=== PATIENT | female | born 1955 | race Caucasian/White ===

== ENCOUNTER → 2017-03-27 | Outpatient (CLI) | payer OTHER ==
[~2017-03-27] MED LIST: ASPI-630 PO; CHOL100099 PO; KRIL1CAP10 PO; LISI10TA2 PO; MULT1TAB52 PO; OMEP20CA5 PO; PRAV80TA2 PO
--- NOTE | 2017-03-27 10:47 | KCIC ---
Renal ultrasound dated 03/27/2017. Comparison made to 12/13/2015. Clinical indication: Hematuria. FINDINGS: Right kidney measures 10.7 cm in length. Left kidney measures 10.7 cm in length. No hydronephrosis. There is a complex cystic focus at the midpole right kidney that measures up to 8 mm maximum dimension, not significantly changed given differences in technique. No additional renal lesions. Urinary bladder is unremarkable. Bilateral ureteral jets are seen. Aorta is obscured by overlying bowel gas. Limited visualized portions of IVC unremarkable. IMPRESSION: 1. No acute sonographic abnormality. No evidence of hydronephrosis. 2. Small complex cyst at the midpole right kidney, not significantly changed from prior study. Continued follow-up imaging may be warranted to ensure stability. Electronically signed by: Henrry Bocanegra MD (03/27/2017 10:43 AM) [facility]
--- NOTE | 2017-03-27 10:49 | KCIC ---
Pelvic ultrasound dated 03/27/2017. No comparison available. CLINICAL INDICATION: Right-sided pelvic pain. FINDINGS: Transabdominal pelvic ultrasound was performed. Uterus is retroverted and measures 5.6 x 3.0 x 4.5 cm. There are multiple heterogeneous and partially echogenic mass lesions throughout the uterine myometrium, largest of which measures 3.3 cm in size. The endometrium is obscured and not well evaluated. Small nabothian cysts at the endocervix. Right ovary measures 1.5 x 0.7 x 1.8 cm. Left ovary measures 2.3 x 1.2 x 1.8 cm. No adnexal mass or free fluid. Normal color Doppler flow to both ovaries. IMPRESSION: 1. Fibroid uterus. Calcified fibroids result in shadowing artifact, limiting evaluation of the endometrium. 2. Normal sonographic appearance of the ovaries. Electronically signed by: Henrry Bocanegra MD (03/27/2017 10:46 AM) [facility]
== END | disposition home or self-care (01) ==
LOC: KCIC US 08:42
PROVIDERS: ATTEND Obstetrics & Gynecology
DX: R31.9 Hematuria, unspecified (principal)
CPT/HCPCS: 76770; 76830; 76856

== ENCOUNTER → 2017-11-27 | Outpatient (CLI) | payer OTHER | END | disposition home or self-care (01) | LOC: KCIC 15:10 | DX: M19.041 Primary osteoarthritis, right hand (principal) | CPT/HCPCS: 73130 ==

== ENCOUNTER → 2019-06-30 | Outpatient (CLI) | payer BC ==
--- NOTE | 2019-06-30 15:18 | KCIC ---
EXAM: Chest, 2 views. HISTORY: Chest wall pain. COMPARISON: None. FINDINGS: 2 views of the chest are obtained. There is no infiltrate, pleural effusion or pneumothorax. The heart is normal in size. There is hyperinflation likely due to inspiratory effort. There are calcified granulomas. IMPRESSION: No acute pulmonary finding. Electronically signed by: Ewa Jacobsen MD (06/30/2019 3:16 PM) [facility]
== END | disposition home or self-care (01) ==
LOC: KCIC 14:26
PROVIDERS: ATTEND Family Medicine
DX: J98.4 Other disorders of lung (principal); J84.10 Pulmonary fibrosis, unspecified
CPT/HCPCS: 71046

== ENCOUNTER → 2019-07-01 | Outpatient (CLI) | payer BC ==
--- NOTE | 2019-07-01 11:24 | RAD ---
MR#: [id number] Date of Study: 07/01/2019 Ordering Physician: SUMI REINA, Referring Physician: KAREN MORGAN Tech: TOD Arriaza APPROVED REPORT Test Type: Exercise Stress Nurse/Tech: Barbara Pink RN Test Indications: chest pressure Cardiac History: HTN, hyperlipidemia Medications: See Electronic Medical Record Medical History: See Electronic Medical Record Resting ECG: SR Resting Heart Rate: 69 bpm Resting Blood Pressure: 162/85mmHg Pretest Chest Pain: None Nurse/Tech Notes Lungs CTA, S1S2 Consent: The procedure was explained to the patient in lay terms. Informed consent was witnessed. Reza eout was entered into [employer]. History and Stress Test performed by Barbara Pink RN Stress Symptoms dyspnea POST EXERCISE Reason for Termination: Reached target heart rate Target HR: 130 Exercise duration: 6:08 min:sec, 2 Stage Max Blood Pressure: 188/58mmHg Blood Pressure response to exercise: Normal blood pressure response during stress. Heart Rate response to exercise: normal response Chest Pain: No. Arrhythmia: No. ST Change: No. INTERPRETATION Stress EKG Conclusion: Baseline EKG showed sinus rhythm. No ischemic changes at peak stress. No arr hythmias. Imaging Protocol IMAGE PROTOCOL: Rest Tc-99m/stress Tc-99m 1 day Rest: Stress: Viability: Radiopharm.Tc99m [id number] Sestamibi Upei40tPl 33mCi Duration 15min. 13min. Img Date 07/01/2019 07/01/2019 Inj-Img Iuvn00eqs. 60min. Post-Injection Exercise: 1 minute Rest Admin Site:IV - Left AntecubitalAdministrator:TOD Arriaza Stress Admin Site: IV - Left AntecubitalAdministrator: LINO Snowden, ARRT (R)(N) STRESS DATA End Diast. Vol.51.0mlAv. Heart Rate80.0bpm LVEDV index BSA30.0mlCardiac Output0.0L/min End Syst. Vol.8.0mlCO Index BSA0.0L/min LVESV index BSA5.0mlMyocardial Mass99.0g Eject. Nnohmesp55.0% Stress Scores Regional WT1.00Summed WT2.00 Regional WM0.00Summed WM0.00 Study quality was good. Left Ventricular size was Normal at Rest and Stress. Lung uptake was . Left Ventricular ejection fraction is 84%. The rest and stress images show normal perfusion, normal contraction and thickening. LV Perf. Quant 17 Seg. SSS0.00 17 Seg. SRS1.00 17 Seg. SDS0.00 Stress Defect Extent (% LAD)0.00Rest Defect Extent (% LAD)0.00Rev. Defect Extent (% LAD)0.00 Stress Defect Extent (% LCX) 0.00Rest Defect Extent (% LCX)0.00Rev. Defect Extent (% LCX)0.00 Stress Defect Extent (% RCA)0.00Rest Defect Extent (% RCA)0.00Rev. Defect Extent (% RCA)0.00 Stress Defect Extent (% DAYDAY)0.00Rest Defect Extent (% DAYDAY)0.00Rev. Defect Extent (% DAYDAY)0.00 Conclusion 1. Treadmill exercise cardioisotope stress test did not show any evidence of ischemia or infarct. 2. Normal left ventricular systolic function with ejection fraction calculated at 84%. 3. Low risk for cardiac events. Signed by : Arnold Hwang, Electronically Approved : 07/01/2019 11:24:32
== END | disposition home or self-care (01) ==
LOC: NM 07:58
PROVIDERS: ATTEND Internal Medicine Cardiovascular Disease
DX: I10 Essential (primary) hypertension (principal); I20.0 Unstable angina; R06.09 Other forms of dyspnea; E78.5 Hyperlipidemia, unspecified
CPT/HCPCS: 78452; 93017; A9500